=== PATIENT | female | born 1990 | race Caucasian/White ===

== ENCOUNTER 2021-08-26 00:09 | Inpatient (IN) | payer OTHER ==
[~2021-08-26] VITALS: Ht 170.2 cm; Wt 120.2 kg
[~2021-08-26 00:09] MED LIST: ADVIL200 M1 PO; ALLER-TEC10 MG PO; ATIVAN1 MG PO; BENTYL20 MG PO; CIMZIA400 MG SUB-Q; CLARITIN10 MG PO; DILAUDID4 MG PO; FLUOXETINE HCL20 MG PO; METFORMIN HCL500 MG PO; OMEPRAZOLE20 MG PO; ONDANSETRON ODT8 MG PO; ORTHO TRI-CYCL1 EACH PO; PERCOCET 7.5-31 EACH PO; PRENATAL MULTI1 EAC3 PO; PRILOSEC20 MG PO; TYLENOL325 MG PO; [UNRECOGNIZED DRUG - OTHER]
--- NOTE | 2021-08-26 11:28 | PR ---
[facility] [address] [facility] [place], [place] [address] Signed Progress Notes IP Datetime Report Generated by CPN: 08/26/2021 11:28 PROGRESS NOTES: [id number] Impression: Reassuring Heart Rate Procedures: Artificial ROM Plan: Induction VITAL SIGNS: [id number] Vital Signs: Reviewed; Within Normal Limits VS Notable Details: elevated BP not sustained EXAM: [id number] Dilatation: 2.5 Effacement: 60 Station: -2 Contractions: q2-4 min MEMBRANES: [id number] Membranes Status: Ruptured Comments: Rating contractions 5/10 pain Reassuring FHR head well-applied to cervix AROM performed without difficulty Discussed starting low-dose pitocin in 2 hours if no significant change in that time FETUS A: [id number] FHR Baseline: 135 Variability: Moderate 6-25bpm Accelerations: 15X15 Decelerations: None FHR Category: Category I Presentation: Vertex Comments on Fetus A: No evidence of acidemia FETUS B: [id number] Signing Physician: Prashant Irizarry DO Copies: ~ *Electronically Signed* 08/26/21 1128 PRASHANT IRIZARRY DO PATIENT NAME: ALEJANDRO CHEEMA PROGRESS NOTE DATE OF : [birth year] PHYSICIAN: PRASHANT IRIZARRY #: [id number] REPORT IS CONFIDENTIAL AND NOT TO BE RELEASED WITHOUT AUTHORIZATION
--- NOTE | 2021-08-26 18:28 | PR ---
[facility] [address] [place], [place] [address] Signed Progress Notes IP Datetime Report Generated by CPN: 08/26/2021 18:28 PROGRESS NOTES: [id number] Impression: Reassuring Heart Rate Procedures: Artificial ROM Plan: Induction Other Plans: start low-dose pitocin VITAL SIGNS: [id number] Vital Signs: Reviewed; Within Normal Limits VS Notable Details: elevated BP not sustained EXAM: [id number] Dilatation: 4.0 Effacement: 80 Station: -2 Contractions: q2-4 min MEMBRANES: [id number] Membranes Status: Ruptured Comments: MIOL for GDM- diet -POCT glucose within goal range -s/p cytotec x 3, AROM -epidural placed, difficulty sitting still for epidural -start low-dose pitocin -continue to monitor BP, if elevated despite increased comfort then PreE labs FETUS A: [id number] FHR Baseline: 135 Variability: Moderate 6-25bpm Accelerations: 15X15 Decelerations: None FHR Category: Category I Presentation: Vertex Comments on Fetus A: No evidence of acidemia FETUS B: [id number] Signing Physician: Prashant Irizarry DO Copies: ~ *Electronically Signed* 08/26/21 182 PRASHANT IRIZARRY DO PATIENT NAME: ALEJANDRO CHEEMA PROGRESS NOTE DATE OF : [birth year] PHYSICIAN: PRASHANT IRIZARRY #: [id number] REPORT IS CONFIDENTIAL AND NOT TO BE RELEASED WITHOUT AUTHORIZATION
--- NOTE | 2021-08-26 22:35 | PR ---
[facility] [address] [place], [place] [address] Signed Progress Notes IP Datetime Report Generated by CPN: 08/26/2021 22:35 PROGRESS NOTES: [id number] Impression: Reassuring Heart Rate Procedures: Intrauterine Pressure Catheter; Scalp Electrode Plan: Continue Present Management; Anesthesia Consult Other Plans: start low-dose pitocin VITAL SIGNS: [id number] Vital Signs: Reviewed; Within Normal Limits VS Notable Details: elevated BP not sustained EXAM: [id number] Dilatation: 6.0 Effacement: 90 Station: -2 Contractions: q2-4 min MEMBRANES: [id number] Membranes Status: Ruptured Comments: Still uncomfortable with epidural, declining replacement Cx: /-2, cervix soft, posterior IUPC/FSE discussed with pt, she elected to proceed, placed without difficulty. Contractions not yet adequate - continue pitocin FETUS A: [id number] FHR Baseline: 135 Variability: Moderate 6-25bpm Accelerations: 15X15 Decelerations: None FHR Category: Category I Presentation: Vertex Comments on Fetus A: No evidence of acidemia FETUS B: [id number] Signing Physician: Prashant Irizarry DO Copies: ~ *Electronically Signed* 08/26/21 7385 PRASHANT IRIZARRY DO PATIENT NAME: ALEJANDRO CHEEMA PROGRESS NOTE DATE OF : [birth year] PHYSICIAN: PRASHANT IRIZARRY #: [id number] REPORT IS CONFIDENTIAL AND NOT TO BE RELEASED WITHOUT AUTHORIZATION
--- NOTE | 2021-08-27 02:08 | PR ---
[facility] [address] [place], [place] [address] Signed Progress Notes IP Datetime Report Generated by JOE: 08/27/2021 02:08 PROGRESS NOTES: [id number] Impression: Non-reassuring Heart Rate Procedures: Intrauterine Pressure Catheter; Scalp Electrode Plan: Deliver- Section Other Plans: start low-dose pitocin Informed Consent Obtain: Section Delivery VITAL SIGNS: [id number] Vital Signs: Reviewed; Within Normal Limits VS Notable Details: elevated BP not sustained EXAM: [id number] Dilatation: 10.0 Effacement: 100 Station: -2 Contractions: q2-4 min MEMBRANES: [id number] Membranes Status: Ruptured Comments: Nonreassuring heart tones, abrupt bloody show, 9.5cm Poor epidural coverage Risks, benefits, alternatives to PLTCS for NRFHT discussed and she elected to proceed Terbutaline given. FETUS A: [id number] FHR Baseline: 135 Variability: Moderate 6-25bpm Accelerations: 15X15 Decelerations: None FHR Category: Category I Presentation: Vertex Comments on Fetus A: No evidence of acidemia FETUS B: [id number] Signing Physician: Prashant Irizarry DO Copies: ~ *Electronically Signed* 08/27/21 0208 PRASHANT IRIZARRY DO PATIENT NAME: ALEJANDRO CHEEMA PROGRESS NOTE DATE OF : [birth year] PHYSICIAN: PRASHANT IRIZARRY #: [phone] REPORT IS CONFIDENTIAL AND NOT TO BE RELEASED WITHOUT AUTHORIZATION
--- NOTE | 2021-08-28 07:01 | PR ---
[facility] [address] [place], [place] [address] Signed PP Progress Notes Datetime Report Generated by CPN: 08/28/2021 07:01 SUBJECTIVE: [id number] Pain: Within Normal Limits Nausea/Vomiting: Denies Flatus: Yes Bowel Movement: No Vital Signs: [id number] Vital Signs: Reviewed; Within Normal Limits Cardiovascular: Normal Respiratory: Normal Abdomen/Uterus: Normal Lochia: Normal Vulva/Perineum: Not Done Breasts: Not Done CVA Tenderness: Normal Extremities: Normal Incision: Normal Progress: Normal Exam Comments: Fundus firm U-2 nontender. Incision healing well IMPRESSION/PLAN/PROCEDURES: [id number] Impression: Normal Progression Plan: Continue Present Management Progress Notes: Pt seen and examined. Doing well. Ambulating, voiding, and tolerating full diet. Pain and lochia minimal. well. No fevers/chills. Hgb 7.6. Reports no lightheadedness or dizziness. Recommended iron infusion and pt is agreeable Signing Physician: Kirby Barakat DO Copies: ~ *Electronically Signed* 08/28/21 0701 KIRBY BARAKAT DO PATIENT NAME: ALEJANDRO CHEEMA PROGRESS NOTE DATE OF : [birth year] PHYSICIAN: KIRBY BARAKAT DO RPT #: [id number] REPORT IS CONFIDENTIAL AND NOT TO BE RELEASED WITHOUT AUTHORIZATION
--- NOTE | 2021-08-29 08:38 | PR ---
[facility] [facility] [address] [place], [place] [address] Signed PP Progress Notes Datetime Report Generated by CPN: 08/29/2021 08:38 SUBJECTIVE: [id number] Pain: Within Normal Limits Nausea/Vomiting: Denies Flatus: Yes Bowel Movement: No Vital Signs: [id number] Vital Signs: Reviewed; Within Normal Limits Cardiovascular: Normal Respiratory: Normal Abdomen/Uterus: Normal Lochia: Normal Vulva/Perineum: Not Done Breasts: Not Done CVA Tenderness: Normal Extremities: Normal Incision: Normal Progress: Normal Exam Comments: Fundus firm U-2 nontender. Incision well healing w/ raul in place IMPRESSION/PLAN/PROCEDURES: [id number] Impression: Normal Progression Plan: Discharge Progress Notes: Pt seen and examined. Doing well. Ambulating, voiding, and tolerating full diet. Pain and lochia minimal. well. No fevers/chills or other concerns. Desires d/c home. Did well w/ iron infusion yesterday and reports no light headedness, dizziness, or abnormal bleeding. BPs mildly elevated. No SHERIDAN, RUQ pain, or visual changes. Reviewed s/sx preE. Pt will come to office for BP check early next week. Signing Physician: Kirby Barakat DO Copies: ~ *Electronically Signed* 08/29/21 0838 KIRBY BARAKAT DO PATIENT NAME: ALEJANDRO CHEEMA PROGRESS NOTE DATE OF : [birth year] PHYSICIAN: KIRBY BARAKAT DO RPT #: [id number] REPORT IS CONFIDENTIAL AND NOT TO BE RELEASED WITHOUT AUTHORIZATION
--- NOTE | 2021-08-29 13:28 | PATH ---
[facility] [address] [place], [place] [address] Signed SPECIMEN(S): A PLACENTA SPECIMEN SOURCE: A. PLACENTA CLINICAL HISTORY: Abrupt onset bleeding. FINAL PATHOLOGIC DIAGNOSIS: Placenta, third trimester, section: - Polk placenta, appropriate weight for stated gestational age of 39 weeks, 3 days. - Umbilical cord: Three-vessel umbilical cord with no histopathologic abnormality. - membranes: No histopathologic abnormality. - Placental disc: Chorionic villi with mature villous morphology, chorangiosis, intervillous thrombohematoma, and retroplacental hematoma (see comment). COMMENT: The clinical history of abrupt onset bleeding is noted. Clotted is present adherent to the basal plate and focal minimal blood is seen dissecting through the decidua, which could be indicative of placental abruption. However, these findings are nonspecific and the diagnosis of placental abruption is clinical in nature. NAL:cml:C3 MICROSCOPIC EXAMINATION: Histologic sections of all submitted blocks are examined by light microscopy. These findings, together with the gross examination, support the pathologic diagnosis. GROSS DESCRIPTION: The specimen, labeled "HH, placenta," is received fresh and placed in formalin and consists of polk discoid placenta with the following parameters: Umbilical cord: Insertion eccentric-3.8 cm from the margin, measurement 9.2 x 0.9 cm; trivascular. Also in the container is a detached, 9.7 x 0.9 cm, grossly unremarkable segment of additional cord coiling index (per 10 cm): Grossly indeterminate. Lesions: Not grossly identified. Membranes: Insertion site: Marginal, zurita/translucent, rupture site grossly PATIENT NAME: ALEJANDRO CHEEMA PATHOLOGY DATE OF : 89 REPORT #: [id number] PHYSICIAN: CAROLINE PATHOLOGY PCP: RYAN SON PA-C REPORT IS CONFIDENTIAL AND NOT TO BE RELEASED WITHOUT AUTHORIZATION [facility] [address] [place], [place] [address] Signed indeterminate, the membrane zurita in previously torn from the disc. Other: Not grossly identified. Chorionic Plate: Normal radiating vascular pattern, blue-purple and shiny. Lesions: The chorionic plate has 2 submembranous areas of zurita-white discoloration that is 0.91.0 centimeters in greatest dimension. Other: Not grossly identified. Maternal Surface: Normal cotyledons, intact. Lesions: Multiple, focal areas of adherent blood clot from less than 0.1 up to 2.2 cm in greatest dimension and comprising less than 5% surface. Additionally the maternal surface has one, 0.5 cm in greatest dimension area of zurita-white consolidation. An additional discrete mass is lesion is not grossly identified. Measurement: 19.7 x 16.3 x 2.7 cm. Weight (trimmed): 543.4 g Cut Surface: Maroon and spongy. Lesions: Multiple, focal areas of zurita-white consolidation from less than 0.1 up to 1.5 cm in greatest dimension. The areas of consolidation are associated with the maternal surface consolidation in the chorionic plate submembranous discoloration. The areas of consolidation comprised approximately less than 5% of the parenchyma. An additional discrete mass/lesion is marked grossly identified. Basal plate fibrin 0.1 cm in thickness. Other Findings: Not grossly identified. Cassette Summary: (A1) central section of placenta including maternal surface consolidation (A2) membranes and umbilical cord (A3) eccentric section of placenta (A4) eccentric section of placenta AI(under the direct supervision of a pathologist) The Gross Description was prepared using a voice recognition system. The report was reviewed for accuracy; however, sound-alike word errors, addition and/or deletions may occur. If there is any question about this report, please contact Client Services. PERFORMING LABORATORY: The technical component was performed by [facility], [address] [place] [id number] (CLIA# [id number]). Professional interpretation was performed by [facility], [facility], [address] [place] [id number] (CLIA# [id number]). Diagnostician: Cassie Andrews MD PATIENT NAME: ALEJANDRO CHEEMA PATHOLOGY DATE OF : [birth year] REPORT #: [id number] PHYSICIAN: CAROLINE BLACKWOOD PCP: RYAN SON PA-C REPORT IS CONFIDENTIAL AND NOT TO BE RELEASED WITHOUT AUTHORIZATION [address] [address] Signed Pathologist Electronically Signed 08/29/2021 Copies: ~ PATIENT NAME: ALEJANDRO CHEEMA PATHOLOGY DATE OF : [birth year] REPORT #: [id number] PHYSICIAN: CAROLINE PATHOLOGY PCP: RYAN SON PA-C REPORT IS CONFIDENTIAL AND NOT TO BE RELEASED WITHOUT AUTHORIZATION
== END 2021-08-29 12:05 | disposition home or self-care (01) | DRG 787 ==
LOC: FBC 00:09
PROVIDERS: ADMIT Obstetrics & Gynecology; ATTEND Obstetrics & Gynecology
PROC: 10D00Z1 Extraction of Products of Conception, Low, Open Approach (ICD-10-PCS; principal; 2021-08-27 02:10)
DX: O24.420 Gestational diabetes mellitus in childbirth, diet controlled (principal); D62 Acute posthemorrhagic anemia; O99.02 Anemia complicating childbirth; D53.9 Nutritional anemia, unspecified; E66.9 Obesity, unspecified; O99.214 Obesity complicating childbirth; Z37.0 Single live birth; L40.9 Psoriasis, unspecified; O75.89 Other specified complications of labor and delivery; O76 Abnormality in fetal heart rate and rhythm complicating labor and delivery; Z3A.39 39 weeks gestation of pregnancy; F41.9 Anxiety disorder, unspecified; O99.344 Other mental disorders complicating childbirth; Z87.891 Personal history of nicotine dependence
CPT/HCPCS: 01961; 36415; 74018; 74022; 80053; 82570; 82803; 83615; 84156; 84550; 85027; 86850; 86900; 86901; A9270; C9803; J0330; J0456; J0690; J1650; J1885; J2250; J2274; J2405; J2540; J2550; J2590; J2765; J2795; J3105; J7121; Q0138; U0003

== ENCOUNTER 2024-01-18 07:44 | Emergency (ER) | payer OTHER ==
[~2024-01-18] VITALS: Ht 167.6 cm; Wt 113.6 kg
[2024-01-18] MEDS ORDERED: MONTELUKAST SOD10 MG PO (07:59)
[2024-01-18] MEDS ORDERED: MECLIZINE HCL25 MG PO (08:08)
[2024-01-18 08:09] VITALS: BP 134/85
[2024-01-18] MEDS ORDERED: MECLIZINE HCL 25 MG TAB PO ONE (08:15)
== END 2024-01-18 08:13 | disposition home or self-care (01) ==
LOC: ED 07:44
DX: R42 Dizziness and giddiness (principal); F17.210 Nicotine dependence, cigarettes, uncomplicated; Z88.0 Allergy status to penicillin; Z79.84 Long term (current) use of oral hypoglycemic drugs; Z79.899 Other long term (current) drug therapy
CPT/HCPCS: 99284; A9270